=== PATIENT | female | born 1955 | race Caucasian/White ===

== ENCOUNTER 2021-10-09 15:25 | Emergency (ER) | payer MEDICARE, OTHER ==
[2021-10-09 16:28] LABS: HEMOGLOBIN 12.8 gm/dl (12.3-15.3); RED BLOOD COUNT 4.29 M/UL (4.00-5.10); WHITE BLOOD COUNT 7.5 K/UL (4.5-11.0)
[2021-10-09 16:50] LABS: BUN/CREATININE RATIO 15 (0-10)
== END 2021-10-09 19:25 | disposition home or self-care (01) ==
LOC: ER1 15:25
PROVIDERS: Physician Assistant
DX: R07.89 Other chest pain (principal); R06.00 Dyspnea, unspecified; G20 Parkinson's disease; G62.9 Polyneuropathy, unspecified; G89.29 Other chronic pain; Z79.899 Other long term (current) drug therapy
CPT/HCPCS: 71045; 80053; 81001; 82550; 82553; 83605; 83690; 84484; 85025; 87086; 93005; 99285; J2270; J2405